=== PATIENT | female | born 1970 | race Caucasian/White ===

== ENCOUNTER 2020-07-20 06:07 | Inpatient (IN) | payer OTHER ==
[~2020-07-20] VITALS: Ht 167.6 cm; Wt 71.0 kg
[~2020-07-20 06:07] MED LIST: BUPR100T7 PO; ceFAZolin SODIUM IV Push 1 GM VIAL. IVP ONE
[2020-07-20] MEDS ORDERED: MORPHINE SULFATE 2 MG/ML VIAL. IV PRN (07:00)
[2020-07-20] MEDS ORDERED: PROCHLORPERAZINE 10 MG/2 ML VIAL. IV PRN ×2 (07:00→10:00)
[2020-07-20] MEDS ORDERED: ONDANSETRON PF 4 MG/2 ML VIAL. IV PRN ×2 (07:00→10:00)
[2020-07-20] MEDS ORDERED: IV RINGERS,LACTATED 1000ML 1,000 ML IV SCH (07:00)
[2020-07-20] MEDS ORDERED: HYDROmorphone 2 MG/ML VIAL IV PRN (07:00)
[2020-07-20] MEDS ORDERED: fentaNYL PF VIAL 100 MCG/2 ML VIAL IV PRN ×2 (07:00)
[2020-07-20 07:01] LABS: BASO % 1 % (0-3); EOS # 0.1 x10^3/uL (0.0-0.7); EOS % 2 % (0-3); HEMATOCRIT 36.4 % (36.0-47.0); HEMOGLOBIN 12.2 g/dL (12.0-15.5); LYMPH # 1.2 x10^3/uL (1.0-4.8); LYMPH % 30 % (24-48); MEAN CORPUSCULAR HEMOGLOBIN 25 pg (25-35); MEAN CORPUSCULAR HGB CONC 33 g/dL (31-37); MEAN CORPUSCULAR VOLUME 76 fL (79-100); MONO # 0.4 x10^3/uL (0.0-1.1); MONO % 9 % (0-9); NEUT # 2.4 x10^3/uL (1.8-7.7); NEUT % 59 % (31-73); PLATELET COUNT 212 x10^3/uL (140-400); RED BLOOD COUNT 4.82 x10^6/uL (3.50-5.40); RED CELL DISTRIBUTION WIDTH 21.6 % (11.5-14.5)
[2020-07-20] MEDS ORDERED: SCOPOLAMINE 1.5MG PATCH. TD ONE ×2 (07:08→07:15)
[2020-07-20] MEDS ORDERED: ESTROGENS, CONJ VAGINAL CREAM 30GM TUBE. ONE (07:17)
[2020-07-20] MEDS ORDERED: BUPIVACAINE-EPI 0.5%-1:200000 MPF 30 ML VIAL. ONE (07:17)
[2020-07-20] MEDS ORDERED: LIDOCAINE 1%/EPI 1:100,000 20 ML VIAL. ONE (07:18)
[2020-07-20] MEDS ORDERED: SURGICEL HEMOSTAT 4X8 EACH. ONE (07:18)
[2020-07-20] MEDS ORDERED: INDIGOTINDISULFONATE SODIUM 40 MG/5 ML AMPUL. ONE (07:18)
[2020-07-20] MEDS ORDERED: LIDOCAINE 2% PF 5 ML VIAL. ONE (07:30)
[2020-07-20] MEDS ORDERED: DEXAMETHASONE SOD PHOS 4 MG/ML VIAL ONE ×2 (07:30→08:19)
[2020-07-20] MEDS ORDERED: MIDAZOLAM HCL/PF 2 MG/2 ML VIAL. ONE (07:30)
[2020-07-20] MEDS ORDERED: ROCURONIUM 50 MG/5 ML VIAL. ONE (07:30)
[2020-07-20] MEDS ORDERED: SUCCINYLCHOLINE 200 MG/10 ML VIAL. ONE (07:30)
[2020-07-20] MEDS ORDERED: ONDANSETRON PF 4 MG/2 ML VIAL. ONE (07:30)
[2020-07-20] MEDS ORDERED: fentaNYL PF VIAL 100 MCG/2 ML VIAL ONE ×2 (07:30→10:53)
[2020-07-20] MEDS ORDERED: PROPOFOL 10 MG/ML (20ML) VIAL. IV ONE (07:30)
[2020-07-20] MEDS ORDERED: FAMOTIDINE 20 MG/2 ML VIAL ONE (07:33)
[2020-07-20 07:37] LABS: ANISOCYTOSIS SLIGHT; PLT ESTIMATE ADEQUATE (ADEQUATE)
[2020-07-20] MEDS ORDERED: KETOROLAC 30 MG/ML VIAL. ONE (08:42)
[2020-07-20] MEDS ORDERED: NEOSTIGMINE METHYLSULFATE 5 MG/5 ML SYRINGE. ONE (08:42)
[2020-07-20] MEDS ORDERED: GLYCOPYRROLATE 1 MG/5 ML VIAL. ONE (08:42)
[2020-07-20] MEDS ORDERED: SEVOFLURANE 61 TO 120 MINUTES. IH ONE (08:44)
[2020-07-20] MEDS ORDERED: diphenhydrAMINE 50 MG/ML VIAL ONE (09:00)
[2020-07-20] MEDS ORDERED: EPINEPHrine 1 MG/ML VIAL ONE (09:06)
[2020-07-20] MEDS ORDERED: BUPIVACAINE MPF 0.5% 30 ML VIAL. ONE (09:06)
[2020-07-20] MEDS ORDERED: DEXAMETHASONE SOD PHOS 20 MG/5 ML VIAL. ONE (09:06)
[2020-07-20] MEDS ORDERED: 0.9 % SODIUM CHLORIDE 20 ML VIAL. IJ ONE (09:42)
--- NOTE | 2020-07-20 09:56 | PDOC ---
BRIEF OPERATIVE NOTE Date: Jul 20, 2020 Pre-Op Diagnosis 1. Fibroids 2. Menorrhagia 3. Anemia Post-Op Diagnosis SAme Procedure Performed LAVH & BSO Surgeon Dr. Camarena Peeled Potato Inspector First Tarun: Hollis Anesthesia Type: General Blood Loss 50 ml Specimens Obtained cervix, uterus, shakira. fallopian tubes and shakira. ovaries Findings enlarged, fibroid uterus, DEEPA cyst 3 cm, nml shakira. fallopian tubes, nml ROV Complications none Operative Note see dictation JAJA CAMARENA Jr, MD Jul 20, 2020 09:56
[2020-07-20] MEDS ORDERED: diphenhydrAMINE HCL 25 MG CAPSULE PO PRN (10:00)
[2020-07-20] MEDS ORDERED: ZOLPIDEM 5 MG TABLET. PO PRN (10:00)
[2020-07-20] MEDS ORDERED: DEXTROSE 50% 25 GM / 50ML DISP.SYRIN. IV PRN (10:00)
[2020-07-20] MEDS ORDERED: CALCIUM CARBONATE 500 MG TAB.CHEW PO PRN (10:00)
[2020-07-20] MEDS ORDERED: diphenhydrAMINE 50 MG/ML VIAL IV PRN (10:00)
[2020-07-20] MEDS ORDERED: KETOROLAC 30 MG/ML VIAL. IV PRN (10:00)
[2020-07-20] MEDS ORDERED: 0.9 % SODIUM CHLORIDE 10 ML DISP.SYRIN. IV PRN (10:00)
[2020-07-20] MEDS ORDERED: SIMETHICONE 80 MG TAB.CHEW PO PRN (10:00)
[2020-07-20] MEDS ORDERED: OPIUM/BELLADONNA 30/16.2MG SUPP.RECT. PR PRN (10:00)
--- NOTE | 2020-07-20 10:15 | OP ---
DATE OF SURGERY: PREOPERATIVE DIAGNOSES: 1. Fibroids. 2. Menorrhagia. 3. Anemia. POSTOPERATIVE DIAGNOSES: 1. Fibroids. 2. Menorrhagia. 3. Anemia. PROCEDURE: LAVH-BSO. SURGEON: Jaja Camarena MD. SERVICE CENTER MANAGER: Hollis. ANESTHESIA: GETA. ESTIMATED BLOOD LOSS: 50 mL. COMPLICATIONS: None. FINDINGS: Enlarged fibroid uterus, normal fallopian tubes bilaterally, left ovarian cyst 3 cm size, normal right ovary. SUMMARY: A 49-year-old with long history of menorrhagia causing severe anemia. The patient was then found to have fibroid tumors as well. She was counseled on the risks, benefits and expectations of LAVH and BSO and voiced clear understanding to proceed. DESCRIPTION OF PROCEDURE: The patient was taken to surgery suite and placed in dorsal lithotomy position. She was prepped with Betadine solution for vaginal prep and ChloraPrep for abdominal prep. After adequate anesthesia, bivalve speculum was placed vaginally. Anterior lip of the cervix grasped with single tooth tenaculum. Valtchev uterine manipulator was then placed. The bivalve speculum was removed. Attention was now placed on abdomen. Small transverse skin incision was made just below the umbilicus with a scalpel. The Veress needle was then placed through the infraumbilical incision site. The abdomen was allowed to insufflate up to 1-1/2 liters CO2 gas. The Veress needle was then removed, 5 mm trocar was placed. The scope was positioned. The uterus was enlarged with multiple fibroids. Fallopian tubes appeared normal bilaterally. Right ovary appeared normal. Left ovary demonstrated a 3 cm size cyst. There were abdominal wall adhesions of the omentum as well. Two additional incisions made in the left lower quadrant in which 5 mm trocar was placed. With aid of graspers and EnSeal device, the abdominal wall adhesions were removed. The right round ligament was coagulated and dissected. The right infundibulopelvic ligament was coagulated and dissected. The right broad ligament was coagulated and dissected down to including the right uterine vessel. The same process took place with left adnexa that also included the uterine vessels. A bladder flap was created using EnSeal device and blunt dissection. We then proceeded vaginally. Weighted speculum and curved Hewlett placed vaginally. Single tooth tenaculum and Valtchev uterine manipulator were then removed. Robin clamps were placed on the anterior and posterior lip of the cervix. Cervix was injected with 1% lidocaine with epinephrine in circumferential manner. Bovie cautery was utilized to circumscribe the cervix. The vaginal mucosa was dissected away from the lower uterine segment using moist Ray-Roman. The parametrial tissue and cardinal ligaments were clamped bilaterally, cut, and suture ligated with 2-0 Vicryl suture. Posterior cul-de-sac was then entered sharply using curved Isaacs scissors. Anterior cul-de-sac was entered bluntly. The uterosacral ligaments were clamped bilaterally, cut, and suture ligated. The cervix, uterus, bilateral fallopian tubes and ovaries were then removed in their entirety. A modified Ring's culdoplasty was performed incorporating the uterosacral ligaments bilaterally. The remainder of the vaginal cuff was reapproximated using 2-0 Vicryl suture in [id number] manner. Permanent soaked vaginal packing was placed. Attention was once again placed on abdomen. The abdomen was once again insufflated with 1-1/2 liters CO2 gas. The scope was positioned. Suction irrigation was utilized to verify good hemostasis of the pedicles and the posterior vaginal cuff. A small amount of normal saline was left in the posterior cul-de-sac. The trocars were then removed under direct visualization. The abdomen was allowed to deflate as much as possible along with mechanical manipulation. The 3 skin incisions were reapproximated using 4-0 Vicryl suture in subcuticular manner. The patient tolerated the procedure well and was taken to recovery room in stable condition. Sponge and needle count correct x 3. JAJA CAMARENA MD DR: NAHUM/jf JOB#: [id number] / [id number]
[2020-07-20] MEDS ORDERED: PROCHLORPERAZINE 10 MG/2 ML VIAL. ONE (10:54)
[2020-07-20 12:00] VITALS: BP 130/59
[2020-07-20] MEDS: oxyCODONE/APAP 5/325 1 TAB TABLET PO PRN ×3 (12:31→21:32)
[2020-07-20] MEDS: GABAPENTIN 300 MG CAPSULE. PO SCH ×2 (16:55→21:32)
[2020-07-20 20:50] VITALS: BP 106/61
[2020-07-21 01:59] VITALS: BP 84/49
[2020-07-21] MEDS: GABAPENTIN 300 MG CAPSULE. PO SCH ×2 (06:07→16:33)
[2020-07-21] MEDS: oxyCODONE/APAP 5/325 1 TAB TABLET PO PRN ×3 (06:08→16:33)
[2020-07-21 06:28] VITALS: BP 85/43
--- NOTE | 2020-07-21 06:34 | NUR ---
This Rn removed the bolton catheter and vaginal packing with no complications.
[2020-07-21 07:30] LABS: BASO % 0 % (0-3); EOS % 0 % (0-3); HEMATOCRIT 31.2 % (36.0-47.0); HEMOGLOBIN 10.5 g/dL (12.0-15.5); LYMPH # 1.4 x10^3/uL (1.0-4.8); LYMPH % 18 % (24-48); MEAN CORPUSCULAR HEMOGLOBIN 26 pg (25-35); MEAN CORPUSCULAR HGB CONC 34 g/dL (31-37); MEAN CORPUSCULAR VOLUME 77 fL (79-100); MONO # 0.6 x10^3/uL (0.0-1.1); MONO % 7 % (0-9); NEUT % 75 % (31-73); PLATELET COUNT 170 x10^3/uL (140-400); RED BLOOD COUNT 4.08 x10^6/uL (3.50-5.40); RED CELL DISTRIBUTION WIDTH 21.2 % (11.5-14.5)
[2020-07-21 07:45] VITALS: BP 99/57
[2020-07-21] MEDS ORDERED: IBUPROFEN 400 MG TABLET. PO PRN (07:45)
[2020-07-21 12:05] VITALS: BP 102/60
--- NOTE | 2020-07-21 16:10 | PDOC ---
SURGICAL PROGRESS NOTE DATE: 07/21/20 TIME: 16:07 Subjective Pt. feeling well. Pain controlled. Pt. tolerating regular diet, voiding and ambulating without difficulty. Vital Signs Vital Signs Date Time Temp Pulse Resp B/P (MAP) Pulse Ox O2 Delivery O2 Flow Rate FiO2 07/21/20 12:05 98.3 63 18 102/60 (74) 98 Room Air 98.3 07/20/20 11:29 10.0 I&O Intake and Output 07/21/20 07:00 Intake Total 3400 ml Output Total 4050 ml Balance -650 ml Intake Oral 600 ml IV Total 1600 ml Other 1200 ml Output Urine Total 4000 ml Estimated Blood Loss 50 ml PATIENT HAS A RODRIGUEZ: No General: Alert, Oriented X3, Cooperative HEENT: Atraumatic Lungs: Clear to auscultation Heart: Regular rate Abdomen: Normal bowel sounds, Soft, No masses Psych/Mental Status: Mental status NL Labs Laboratory Tests Test 07/20/20 06:35 07/20/20 06:38 07/21/20 07:00 Bedside Urine HCG, Qualitative Hcg negative (Negative) White Blood Count 4.0 x10^3/uL (4.0-11.0) 8.0 x10^3/uL (4.0-11.0) Red Blood Count 4.82 x10^6/uL (3.50-5.40) 4.08 x10^6/uL (3.50-5.40) Hemoglobin 12.2 g/dL (12.0-15.5) 10.5 g/dL (12.0-15.5) Hematocrit 36.4 % (36.0-47.0) 31.2 % (36.0-47.0) Mean Corpuscular Volume 76 fL (79-100) 77 fL (79-100) Mean Corpuscular Hemoglobin 25 pg (25-35) 26 pg (25-35) Mean Corpuscular Hemoglobin Concent 33 g/dL (31-37) 34 g/dL (31-37) Red Cell Distribution Width 21.6 % (11.5-14.5) 21.2 % (11.5-14.5) Platelet Count 212 x10^3/uL (140-400) 170 x10^3/uL (140-400) Neutrophils (%) (Auto) 59 % (31-73) 75 % (31-73) Lymphocytes (%) (Auto) 30 % (24-48) 18 % (24-48) Monocytes (%) (Auto) 9 % (0-9) 7 % (0-9) Eosinophils (%) (Auto) 2 % (0-3) 0 % (0-3) Basophils (%) (Auto) 1 % (0-3) 0 % (0-3) Neutrophils # (Auto) 2.4 x10^3/uL (1.8-7.7) 6.0 x10^3/uL (1.8-7.7) Lymphocytes # (Auto) 1.2 x10^3/uL (1.0-4.8) 1.4 x10^3/uL (1.0-4.8) Monocytes # (Auto) 0.4 x10^3/uL (0.0-1.1) 0.6 x10^3/uL (0.0-1.1) Eosinophils # (Auto) 0.1 x10^3/uL (0.0-0.7) 0.0 x10^3/uL (0.0-0.7) Basophils # (Auto) 0.0 x10^3/uL (0.0-0.2) 0.0 x10^3/uL (0.0-0.2) Platelet Estimate Adequate (ADEQUATE) Anisocytosis Slight Laboratory Tests Test 07/21/20 07:00 White Blood Count 8.0 x10^3/uL (4.0-11.0) Red Blood Count 4.08 x10^6/uL (3.50-5.40) Hemoglobin 10.5 g/dL (12.0-15.5) Hematocrit 31.2 % (36.0-47.0) Mean Corpuscular Volume 77 fL (79-100) Mean Corpuscular Hemoglobin 26 pg (25-35) Mean Corpuscular Hemoglobin Concent 34 g/dL (31-37) Red Cell Distribution Width 21.2 % (11.5-14.5) Platelet Count 170 x10^3/uL (140-400) Neutrophils (%) (Auto) 75 % (31-73) Lymphocytes (%) (Auto) 18 % (24-48) Monocytes (%) (Auto) 7 % (0-9) Eosinophils (%) (Auto) 0 % (0-3) Basophils (%) (Auto) 0 % (0-3) Neutrophils # (Auto) 6.0 x10^3/uL (1.8-7.7) Lymphocytes # (Auto) 1.4 x10^3/uL (1.0-4.8) Monocytes # (Auto) 0.6 x10^3/uL (0.0-1.1) Eosinophils # (Auto) 0.0 x10^3/uL (0.0-0.7) Basophils # (Auto) 0.0 x10^3/uL (0.0-0.2) Assessment/Plan A: POD#1 s/p LAVH & BSO P: D/c home. Justicifation of Admission Dx: Justifications for Admission: Justification of Admission Dx: Yes JAJA LAINEZ Jr, MD Jul 21, 2020 16:10
[2020-07-21] MEDS ORDERED: DOCU-109 PO (16:14)
[2020-07-21] MEDS ORDERED: OXYC1TAB15 PO (16:14)
[2020-07-21] MEDS ORDERED: GABA300C18 PO (16:14)
[2020-07-21] MEDS ORDERED: IBUP-1027 PO (16:14)
--- NOTE | 2020-07-21 16:14 | DISCH ---
DISCHARGE INSTRUCTIONS Condition on Discharge Condition on Discharge: Stable Activity After Discharge Activity Instructions for Disc: Activity as tolerated Lifting Instructions after Dis: No heavy lifting Driving Instructions after Dis: No driving for 2 weeks Diet after Discharge Diet after Discharge: Regular Contacting the DRMaria Esther after DC Call your doctor for: Concerns you may have Follow-Up Follow up with: Dr. Camarena in 2 wks JAJA CAMARENA Jr, MD Jul 21, 2020 16:14
[2020-07-21 16:30] VITALS: BP 110/68
--- NOTE | 2020-07-21 16:47 | NUR ---
Pt. instructions given at 1630. Pt. verbalized understanding. Requested to ambulate down to vehicle. This nurse and family member accompanied pt. to 2nd floor exit.
[2020-07-23] MEDS ORDERED: SCOPOLAMINE 1.5MG PATCH. TD SCH (09:00)
--- NOTE | 2020-07-24 15:07 | PATHOLOGY ---
[facility] Accession Number: [id number] . 01 Material submitted: . uterus - UTERUS, CERVIX, BILATERAL TUBES AND OVARIES . 01 Clinical history: . FIBROIDS, ANEMIA, MENORRHAGIA . 02 Diagnosis: Uterus and attached bilateral fallopian tubes and ovaries, laparoscopic-assisted vaginal hysterectomy and bilateral salpingo-oophorectomy: - Leiomyoma, uterine corpus, measuring 2.5 cm. - Adenomyosis, uterine corpus, nodular, measuring 2.0 cm. - Mild chronic cervicitis with focal squamous metaplasia. - Nabothian cysts, cervix, multiple. - Proliferative endometrium. - S/P bilateral tubal ligation with congestion of bilateral fallopian tubes. - Regressing partially luteinized cyst of right ovary. - Cystic follicles of left ovary. . (JPM:[facility] [place]; 07/24/2020) [facility] 07/24/2020 [facility] . 02 Comment: There is no atypia or evidence of malignancy. . (JPM:mm; 07/24/2020) . 02 Electronically signed: . Travis Boudreaux MD, Pathologist NPI- [id number] . 01 Gross description: . The specimen is received in formalin, labeled "Coarcenio, Devika, uterus cervix bilateral tubes and ovaries" and consists of a 158 g uterus with attached cervix measuring 10.5 x 6.0 x 4.6 cm. Attached is the right 14 g tubo-ovarian complex consisting of a fimbriated fallopian tube (5.0 cm in length and up to 0.6 cm) attached to a cerebriform capps 3.3 x 2.4 cm ovary. The left tubo-ovarian complex weighs 13 g consisting of a fimbriated fallopian tube segment measuring 4.0 cm in length and up to 0.5 cm in diameter attached to a focally cystic cerebriform capps ovary measuring 3.5 x 2.9 cm. Both fallopian tubes are status post tubal ligation. The uterine serosa is capps smooth shiny. The 1.0 cm slitlike cervical os is surrounded by glistening capps ectocervical mucosa. The endocervical canal measures 3.5 cm in length and the endometrial cavity is triangular measuring 6.0 cm in length and 5.0 cm in width lined by a pink-red endometrium measuring 0.1 cm. The myometrium is pink-capps measuring up to 3.5 cm with one well-circumscribed nodule measuring 2.5 cm and a poorly circumscribed possible nodule measuring 2.0 cm. The circumscribed nodule shows focal hemorrhage/possible degenerative changes. No additional gross lesions identified. . Both fallopian tube segments are purple capps revealing central lumens. The right ovary reveals a capps parenchyma with a few hemorrhagic/cystic lutea. The left ovary reveals 2 uniloculated cysts containing clear fluid measuring 0.8 and 1.5 cm. The cysts have smooth linings with no papillary excrescences. P 3 [employer]ament/[employer]dn[employer] sections are submitted as follows: . A1: Anterior cervix A2: Posterior cervix A3: Anterior endomyometrium A4: Posterior endomyometrium A5-A7: Nodules A8: Right fallopian tube A9: Right ovary A10: Left fallopian tube A11-A12: Left ovary (SDY; 07/21/2020) SYU/SYU 07/21/2020 1640 Local . 02 Pathologist provided ICD-10: D25.9, N80.0, N72, N88.8, N83.291 . 02 CPT . 999956 Specimen Comment: A courtesy copy of this report has been sent to [phone], [phone] Specimen Comment: [id number] Specimen Comment: Report sent to / DR GONZALEZ Performed at: 01 [facility] [address], [place] [id number] MD Sorin Peters MD Phone: [phone] Performed at: 02 [facility] [address] [place], [place] [id number] MD Travis Boudreaux MD Phone: [phone]
== END 2020-07-21 16:47 | disposition home or self-care (01) | DRG 743 ==
LOC: SURG 06:07 → 3 NORTH 09:56 → OBSVTOIN 09:56
PROVIDERS: ADMIT Obstetrics & Gynecology; ATTEND Obstetrics & Gynecology
PROC: 0UT2FZZ Resection of Bilateral Ovaries, Via Natural or Artificial Opening With Percutaneous Endoscopic Assistance (ICD-10-PCS; 2020-07-20)
PROC: 0UT7FZZ Resection of Bilateral Fallopian Tubes, Via Natural or Artificial Opening With Percutaneous Endoscopic Assistance (ICD-10-PCS; 2020-07-20)
PROC: 0UT9FZZ Resection of Uterus, Via Natural or Artificial Opening With Percutaneous Endoscopic Assistance (ICD-10-PCS; principal; 2020-07-20 08:00)
DX: D25.9 Leiomyoma of uterus, unspecified (principal); N92.0 Excessive and frequent menstruation with regular cycle; D64.9 Anemia, unspecified; Z79.899 Other long term (current) drug therapy
CPT/HCPCS: 36415; 81025; 85025; 86850; 86900; 86901; J0171; J0330; J0690; J0780; J1100; J1200; J1885; J2250; J2405; J2704; J2710; J3010; J3490; J7030; J7120; G0378